=== PATIENT | female | born 1945 | race African-American/Black ===

== ENCOUNTER 2018-07-06 17:20 | Inpatient (IN) | payer MEDICARE, OTHER ==
[~2018-07-06] VITALS: Ht 152.4 cm; Wt 73.9 kg
[2018-07-06] MEDS ORDERED: HYDRALAZINE 20MG/ML VIAL IV ONE (19:30)
[2018-07-06] MEDS ORDERED: ASPIRIN 325MG EC TABLET PO ONE (20:45)
[2018-07-06] MEDS ORDERED: SODIUM CHLORIDE 0.9% 1,000 ML IV ONE (21:36)
[2018-07-06] MEDS ORDERED: LEVETIRACETAM 500MG PREMIX 100 ML IV ONE (21:45)
[2018-07-06 22:22] LABS: CHLORIDE 108 mEq/L (98-107)
[2018-07-06 22:25] LABS: INR 1.1; PARTIAL THROMBOPLASTIN TIME 22.5 sec (23.4-31.0); PROTHROMBIN TIME 10.8 sec (9.1-11.1)
[2018-07-06 22:26] LABS: HEMATOCRIT. 41.7 % (36.0-48.0); MEAN CORPUSCULAR HEMOGLOBIN 23.3 pg (28.0-32.0); MEAN CORPUSCULAR VOLUME 74.5 fL (81.0-99.0); MEAN PLATELET VOLUME 10.1 fl (7.4-10.4); PLATELET 238 x1000/uL (130-400); RED CELL DISTRIBUTION WIDTH 13.1 % (11.6-14.6)
[2018-07-06 23:04] LABS: PLATELET ESTIMATE NORMAL
[2018-07-07 14:23] VITALS: BP 204/102
[2018-07-07] MEDS ORDERED: ONDANSETRON HCL 4MG/2ML INJ IV PRN (15:15)
[2018-07-07] MEDS ORDERED: HYDROCODONE/ACETAMINOPHEN 5/325MG TABLET PO PRN (15:15)
[2018-07-07] MEDS ORDERED: IPRATROPIUM/ALBUTEROL 0.5-3(2.5)MG/3ML NEB INH PRN (15:15)
[2018-07-07] MEDS ORDERED: ACETAMINOPHEN 325MG TABLET PO PRN (15:15)
[2018-07-07 16:00] VITALS: BP 178/78
[2018-07-07] MEDS ORDERED: ENOXAPARIN 30MG/0.3ML SYR SUBCUT SCH (17:00)
[2018-07-07] MEDS: CLONIDINE 0.1MG TABLET PO PRN (17:08)
[2018-07-07] MEDS: ASPIRIN 81MG EC TABLET PO SCH (17:08)
[2018-07-07 17:29] VITALS: BP 172/78
[2018-07-07 20:00] VITALS: BP 172/73
[2018-07-07] MEDS ORDERED: LOSARTAN POTASSIUM 50 MG TABLET PO SCH (22:30)
[2018-07-08] VITALS: BP 147/76
[2018-07-08 04:00] VITALS: BP 175/71
[2018-07-08] MEDS: CLONIDINE 0.1MG TABLET PO PRN (05:34)
[2018-07-08 08:00] VITALS: BP 171/84
[2018-07-08 08:07] LABS: CHLORIDE 109 mEq/L (98-107)
[2018-07-08 08:11] LABS: BASOPHILS % 1.1 % (0.0-2.0); EOSINOPHILS % 0.8 % (0.0-5.0); HEMATOCRIT. 39.7 % (36.0-48.0); HEMOGLOBIN. 12.6 g/dL (12.0-16.0); LYMPHOCYTES % 24.8 % (20.0-50.0); MEAN CORPUSCULAR HEMOGLOBIN 23.6 pg (28.0-32.0); MEAN CORPUSCULAR VOLUME 74.5 fL (81.0-99.0); MEAN PLATELET VOLUME 9.6 fl (7.4-10.4); MONOCYTES % 9.3 % (2.0-8.0); PLATELET 196 x1000/uL (130-400); RED BLOOD CELL COUNT 5.33 mill/uL (4.2-5.4); RED CELL DISTRIBUTION WIDTH 13.3 % (11.6-14.6)
[2018-07-08 08:22] LABS: CREATINE KINASE 153 IU/L (26-192)
[2018-07-08 08:23] LABS: T4 FREE 1.31 ng/dL (0.76-1.46)
[2018-07-08 08:27] LABS: HDL CHOLESTEROL 47 mg/dL (40-59)
[2018-07-08 08:28] LABS: LDL CHOLESTEROL 144 mg/dL (5-100)
[2018-07-08] MEDS: ASPIRIN 81MG EC TABLET PO SCH ×2 (09:13→09:17)
[2018-07-08] MEDS: AMLODIPINE 5MG TABLET PO SCH ×2 (10:22→22:09)
[2018-07-08 12:00] VITALS: BP 171/89
[2018-07-08] MEDS ORDERED: HYDRALAZINE 20MG/ML VIAL IV PRN (12:15)
[2018-07-08] MEDS ORDERED: CARVEDILOL 3.125 MG TABLET PO NR (16:45)
[2018-07-08] MEDS ORDERED: IPRATROPIUM/ALBUTEROL 0.5-3(2.5)MG/3ML NEB HHN SCH (18:00)
[2018-07-08 20:00] VITALS: BP 146/69
[2018-07-08] MEDS ORDERED: LOSA100T14 PO (20:02)
[2018-07-08] MEDS ORDERED: METO-411 PO (20:02)
[2018-07-08] MEDS ORDERED: ATORVASTATIN CALCIUM 40MG TABLET PO SCH (21:00)
[2018-07-08] MEDS: LOSARTAN POTASSIUM 50 MG TABLET PO SCH (22:09)
[2018-07-08] MEDS: CARVEDILOL 3.125 MG TABLET PO SCH (22:10)
[2018-07-08] MEDS: ENOXAPARIN 40MG/0.4ML SYR SUBCUT SCH (22:12)
[2018-07-08] MEDS: ATORVASTATIN CALCIUM 20MG TABLET PO SCH (22:13)
[2018-07-09 00:10] VITALS: BP 145/73
[2018-07-09 00:33] LABS: BG BASE EXCESS 2.4 mmol/L (-2.0-2.0); BG CARBOXYHEMOGLOBIN 0.1 % (0.5-1.5); BG DEOXYHEMOGLOBIN 2.7 % (0.0-5.0); BG FRACTION INSPIRED OXYGEN 21; BG HCO3 ACT 25.6 mmol/L (22.0-26.0); BG METHEMOGLOBIN 0.5 % (0.0-1.5); BG OXYGEN SATURATION 97.3 % (92.0-98.5); BG OXYHEMOGLOBIN 96.7 % (94.0-97.0); BG PCO2 34.7 mmHg (35.0-45.0); BG PH 7.485 (7.350-7.450); BG PO2 90.4 mmHg (75.0-100.0); BG SAMPLE SITE LEFT RADIAL; BG TOTAL HEMOGLOBIN 12.3 g/dL (12.0-18.0); BG VENT MODE ROOM AIR
[2018-07-09 04:00] VITALS: BP 133/78
[2018-07-09 06:17] LABS: BASOPHILS % 0.7 % (0.0-2.0); EOSINOPHILS % 0.7 % (0.0-5.0); HEMATOCRIT. 38.5 % (36.0-48.0); HEMOGLOBIN. 12.3 g/dL (12.0-16.0); LYMPHOCYTES % 28.5 % (20.0-50.0); MEAN CORPUSCULAR HEMOGLOBIN 23.5 pg (28.0-32.0); MEAN CORPUSCULAR VOLUME 73.6 fL (81.0-99.0); MEAN PLATELET VOLUME 9.4 fl (7.4-10.4); MONOCYTES % 9.8 % (2.0-8.0); NEUTROPHILS % 60.3 % (40.0-76.0); PLATELET 204 x1000/uL (130-400); RED BLOOD CELL COUNT 5.23 mill/uL (4.2-5.4); RED CELL DISTRIBUTION WIDTH 13.1 % (11.6-14.6)
[2018-07-09 06:22] LABS: CHLORIDE 109 mEq/L (98-107)
[2018-07-09 06:32] LABS: CREATINE KINASE 250 IU/L (26-192)
[2018-07-09 06:35] LABS: CREATINE KINASE MB FRACTION 3.7 ng/mL (0.5-3.6)
[2018-07-09 07:45] VITALS: BP 152/78
[2018-07-09] MEDS: AMLODIPINE 5MG TABLET PO SCH ×2 (08:34→21:27)
[2018-07-09] MEDS: LOSARTAN POTASSIUM 50 MG TABLET PO SCH ×2 (08:34→21:26)
[2018-07-09] MEDS: CARVEDILOL 3.125 MG TABLET PO SCH ×2 (09:44→21:27)
[2018-07-09 12:00] VITALS: BP 159/83
[2018-07-09 16:00] VITALS: BP 169/75
[2018-07-09] MEDS: CLONIDINE 0.1MG TABLET PO PRN (16:06)
[2018-07-09] MEDS: ENOXAPARIN 40MG/0.4ML SYR SUBCUT SCH (16:07)
[2018-07-09] MEDS: AMOXICILLIN/POTASSIUM CLAVULANATE 500/125MG TAB PO SCH ×2 (16:07→23:53)
[2018-07-09 20:00] VITALS: BP 152/84
[2018-07-09] MEDS: ATORVASTATIN CALCIUM 20MG TABLET PO SCH (21:26)
[2018-07-10] VITALS (7 sets, daily range): BP systolic 147–158; BP diastolic 68–90
[2018-07-10 07:02] LABS: BASOPHILS % 1.5 % (0.0-2.0); EOSINOPHILS % 2.1 % (0.0-5.0); HEMATOCRIT. 38.9 % (36.0-48.0); HEMOGLOBIN. 12.2 g/dL (12.0-16.0); MEAN CORPUSCULAR HEMOGLOBIN 23.5 pg (28.0-32.0); MEAN PLATELET VOLUME 9.4 fl (7.4-10.4); MONOCYTES % 10.7 % (2.0-8.0); NEUTROPHILS % 56.7 % (40.0-76.0); PLATELET 196 x1000/uL (130-400); RED BLOOD CELL COUNT 5.19 mill/uL (4.2-5.4); RED CELL DISTRIBUTION WIDTH 13.3 % (11.6-14.6)
[2018-07-10] MEDS: AMOXICILLIN/POTASSIUM CLAVULANATE 500/125MG TAB PO SCH ×2 (08:25→17:47)
[2018-07-10] MEDS: ASPIRIN 81MG EC TABLET PO SCH (09:03)
[2018-07-10] MEDS: CARVEDILOL 3.125 MG TABLET PO SCH ×2 (09:04→21:06)
[2018-07-10] MEDS: AMLODIPINE 5MG TABLET PO SCH ×2 (09:04→21:06)
[2018-07-10] MEDS: LOSARTAN POTASSIUM 50 MG TABLET PO SCH ×2 (09:04→21:06)
[2018-07-10] MEDS ORDERED: POTASSIUM CHLORIDE 20MEQ/PACKET PO NR (10:30)
[2018-07-10] MEDS: ENOXAPARIN 40MG/0.4ML SYR SUBCUT SCH (17:48)
[2018-07-10] MEDS: ATORVASTATIN CALCIUM 20MG TABLET PO SCH (21:06)
== END 2018-07-10 22:40 | DRG 64 ==
LOC: ER 17:20 → 6WST 23:15 → EDBEDREQTM 23:18 → EDBEDREQ 23:18 → ENRESERV 07-07 11:12
PROVIDERS: ADMIT Internal Medicine; ATTEND Internal Medicine
DX: I63.9 Cerebral infarction, unspecified (principal); I21.4 Non-ST elevation (NSTEMI) myocardial infarction; I50.33 Acute on chronic diastolic (congestive) heart failure; G81.91 Hemiplegia, unspecified affecting right dominant side; D68.59 Other primary thrombophilia; E46 Unspecified protein-calorie malnutrition; I13.0 Hypertensive heart and chronic kidney disease with heart failure and stage 1 through stage 4 chronic kidney disease, or unspecified chronic kidney disease; N18.9 Chronic kidney disease, unspecified; I27.20 Pulmonary hypertension, unspecified; E86.0 Dehydration; R06.03 Acute respiratory distress; Z86.73 Personal history of transient ischemic attack (TIA), and cerebral infarction without residual deficits; E78.5 Hyperlipidemia, unspecified; E78.00 Pure hypercholesterolemia, unspecified; Z82.3 Family history of stroke; Z79.899 Other long term (current) drug therapy; Z68.31 Body mass index [BMI] 31.0-31.9, adult
CPT/HCPCS: 36415; 36600; 70551; 71045; 78582; 80048; 80061; 82375; 82550; 82553; 82805; 82962; 83036; 83735; 83880; 84439; 84443; 84484; 85379; 92610; 93005; 93306; 93880; 93970; 94640; 96372; 97116; 97162; 97166; 99285; A9558; J0360; J1650; J1953; J7030; J7040; J7620